=== PATIENT | female | born 1980 | race African-American/Black ===

== ENCOUNTER 2016-06-10 09:59 | Emergency (ER) | payer BC ==
[2016-06-10] MEDS ORDERED: NS 1,000 ML IV ONE ×2 (10:40)
[2016-06-10 10:50] LABS: % IMMATURE GRANULYOCYTES 0.4 % (0.0-1.1); ABSOLUTE IMMATURE GRANULOCYTES 0.04 10^3/uL (0.00-0.10); ADD DIFF? NO; ADD MORPH? NO; ADD SCAN? NO; ATYPICAL LYMPHOCYTE FLAG 10 (0-99); FRAGMENT RBC FLAG 0 (0-99); HEMATOCRIT 44.9 % (38.0-47.0); HEMOGLOBIN 14.8 g/dL (12.6-16.3); LEFT SHIFT FLG 40 (0-99); LIPEMIA HEMOLYSIS FLAG 80 (0-99); MEAN CELL HEMOGLOBIN 27.3 pg (27.9-34.1); MEAN CELL VOLUME 82.8 fL (81.5-99.8); PLATELET CLUMPS FLAG 0 (0-99); PLATELET COUNT 289 10^3/uL (150-400); RED BLOOD CELL COUNT 5.42 10^6/uL (4.18-5.33); RED CELL DISTRIBUTION WIDTH 13.2 % (11.5-15.2)
[2016-06-10 11:08] LABS: ALANINE AMINOTRANSFERASE 28 IU/L (9-52); ALBUMIN 4.7 g/dL (3.5-5.0); ALKALINE PHOSPHATASE 90 IU/L (38-126); ANION GAP 13 mEq/L (8-16); ASPARTATE AMINOTRANSFERASE 34 IU/L (14-46); BILIRUBIN-CONJUGATED 0.5 mg/dL (0.0-0.5); BILIRUBIN-UNCONJUGATED 0.5 mg/dL (0.0-1.1); CARBON DIOXIDE 21 mEq/l (22-31); CHLORIDE 108 mEq/L (97-110); CREATININE 0.9 mg/dL (0.6-1.0); GLOMERULAR FILTRATION RATE > 60; GLUCOSE 92 mg/dL (70-100); SODIUM 142 mEq/L (134-144); TOTAL PROTEIN 8.3 g/dL (6.3-8.2)
[2016-06-10 11:09] LABS: BHCG-QUALITATIVE NEGATIVE; MONO TEST NEGATIVE (NEGATIVE)
--- NOTE | 2016-06-10 11:12 | EDPHY ---
H & P Stated Complaint: herpes outbreak with lymphedema/[place] chills/diarrhea Time Seen by Provider: 06/10/16 10:26 HPI/ROS: CHIEF COMPLAINT: herpes genitalis HISTORY OF PRESENT ILLNESS: 36-year-old female prior history of herpes genitalis complaining of 4 days of herpes genitalis outbreak. She also notes a bifrontal non thunderclap headache present for the past 3 days, development of inguinal adenopathy and diarrhea in the past 1 day. Denies: Abdominal pain, nausea, vomiting, melena, hematochezia, international travel, untreated water sources, back or flank pain, urinary abnormality, nuchal rigidity, gait instability, slurred speech, visual disturbance. PRIMARY CARE PROVIDER: none REVIEW OF SYSTEMS: A ten point review of systems was performed and is negative with the exception of the items mentioned in the HPI PAST MEDICAL & SURGICAL HISTORY: Prior herpes genitalis SOCIAL HISTORY: nonsmoker PHYSICAL EXAM (Prior to examination, patient consented to physical exam, hands were washed and my usual and customary physical exam procedures followed) 1) GENERAL: Well-developed, well-nourished, alert and oriented. Appears nontoxic answering questions appropriately . 2) HEAD: Normocephalic, atraumatic 3) HEENT: Pupils equal, round, reactive to light bilaterally. Sclera anicteric. Nasopharynx, oropharynx, clear, no lesions. Moist mucous membranes. Ears bilaterally with normal tympanic membranes. 4) NECK: Full range of motion, no meningeal signs. 5) LUNGS: Clear auscultation bilaterally, no wheezes, no rhonchi, no retractions. 6) HEART: Regular rate and rhythm, no murmur, no heave, no gallop. 7) ABDOMEN: No guarding, no rebound, no focal tenderness, negative McBurney's, negative Cruz's, negative Rovsing's, negative peritoneal sign, I am unable to elicit any abdominal pain 8) MUSCULOSKELETAL: Moving all extremities, no focal areas of tenderness, no obvious trauma. No peripheral edema or discoloration. 9) BACK: No CVA tenderness, no midline vertebral tenderness, no fluctuance, no step-off, no obvious trauma, no visual or palpable abnormality. 10) SKIN: No rash, no petechiae. 11) Psychiatric: Patient is oriented X 3, there is no agitation. 12) NEURO: Awake, alert, and oriented to person, place and time. Answers questions appropriately. There were no obvious focal neurologic abnormalities. No cerebellar dysfunction. Normal steady gait. Upper and lower extremities bilaterally with strength 5 / 5, reflexes 2+. 13) ( performed with nurse Gwendolyn at bedside) multiple vesicular lesions on her labia majora and minora. Bilateral inguinal adenopathy noted DIFFERENTIAL DIAGNOSIS: in no particular order including but not limited to herpes genitalis, acute appendicitis, ectopic - Personal History LMP (Females 10-55): 1-7 Days Ago Current Tetanus/Diphtheria Vaccine: Yes - Medical/Surgical History Hx Asthma: No Hx Chronic Respiratory Disease: No Hx Diabetes: No Hx Cardiac Disease: No Hx Renal Disease: No Hx Cirrhosis: No Hx Alcoholism: No Hx HIV/AIDS: No Hx Splenectomy or Spleen Trauma: No Other PMH: denies - Social History Smoking Status: Never smoked Constitutional: Initial Vital Signs Temperature (C) 37.2 C 06/10/16 10:12 Heart Rate 100 06/10/16 10:12 Respiratory Rate 20 06/10/16 10:12 Blood Pressure 144/93 H 06/10/16 10:12 O2 Sat (%) 100 06/10/16 10:12 O2 Delivery Mode Room Air Allergies/Adverse Reactions: Penicillins Allergy (Verified 06/10/16 10:12) Home Medications: Medication Instructions Recorded LYSINE 06/10/16 valACYclovir [Valtrex (*)] 500 mg PO BID 3 Days 06/10/16 Medical Decision Making ED Course/Re-evaluation: Patient has been re-evaluated by myself with serial examinations. Most recent exam at 12:35 p.m. at which point she is sleeping and appears comfortable. Easily woken. Regarding her non thunderclap headache with no neurologic deficits, I think that intracranial hemorrhage, malignancy, venous thrombus, herpes meningitis, encephalitis, less than likely in this patient at this time. I do not think that the benefits of CT imaging and/or LP outweigh the risks. Discussed her physical exam findings consistent with herpes genitalis. Symptoms have been occurring for 4 days. Informed her that ideally antivirals would have been started sooner but I do think that a course of antivirals is currently indicated as I think the benefits outweigh the risks. She is started on Valtrex. She also notes new onset of diarrhea without nausea, vomiting, abdominal pain. Doubt acute surgical abdominal pathology. Doubt acute appendicitis, doubt ectopic . She has been unable to provide a stool sample in the emergency department. I do not think that imaging studies indicated currently. She has not have primary care provider. Given the name of on-call primary care provider for follow-up and usual customary strict return precautions instructions - Data Points Laboratory Results: Laboratory Results 06/10/16 10:45 06/10/16 10:45 06/10/16 06/10/16 06/10/16 10:45 10:45 10:45 WBC 10.81 10^3/uL H 10^3/uL (3.80-9.50) RBC 5.42 10^6/uL H 10^6/uL (4.18-5.33) Hgb 14.8 g/dL g/dL (12.6-16.3) Hct 44.9 % % (38.0-47.0) MCV 82.8 fL fL (81.5-99.8) MCH 27.3 pg L pg (27.9-34.1) MCHC 33.0 g/dL g/dL (32.4-36.7) RDW 13.2 % % (11.5-15.2) Plt Count 289 10^3/uL 10^3/uL (150-400) MPV 10.0 fL fL (8.7-11.7) Neut % (Auto) 71.0 % % (39.3-74.2) Lymph % (Auto) 17.9 % % (15.0-45.0) Towner % (Auto) 7.2 % % (4.5-13.0) Eos % (Auto) 3.1 % % (0.6-7.6) Baso % (Auto) 0.4 % % (0.3-1.7) Nucleat RBC Rel Count 0.0 % % (0.0-0.2) Absolute Neuts (auto) 7.67 10^3/uL H 10^3/uL (1.70-6.50) Absolute Lymphs (auto) 1.94 10^3/uL 10^3/uL (1.00-3.00) Absolute Monos (auto) 0.78 10^3/uL 10^3/uL (0.30-0.80) Absolute Eos (auto) 0.34 10^3/uL 10^3/uL (0.03-0.40) Absolute Basos (auto) 0.04 10^3/uL 10^3/uL (0.02-0.10) Absolute Nucleated RBC 0.00 10^3/uL 10^3/uL (0-0.01) Immature Gran % 0.4 % % (0.0-1.1) Immature Gran # 0.04 10^3/uL 10^3/uL (0.00-0.10) Sodium 142 mEq/L mEq/L (134-144) Potassium 5.0 mEq/L mEq/L (3.5-5.2) Chloride 108 mEq/L mEq/L (97-110) Carbon Dioxide 21 mEq/l L mEq/l (22-31) Anion Gap 13 mEq/L mEq/L (8-16) BUN 11 mg/dL mg/dL (7-23) Creatinine 0.9 mg/dL mg/dL (0.6-1.0) Estimated GFR > 60 Glucose 92 mg/dL mg/dL (70-100) Calcium 10.0 mg/dL mg/dL (8.5-10.4) Total Bilirubin 1.0 mg/dL mg/dL (0.1-1.4) Conjugated Bilirubin 0.5 mg/dL mg/dL (0.0-0.5) Unconjugated Bilirubin 0.5 mg/dL mg/dL (0.0-1.1) AST 34 IU/L IU/L (14-46) ALT 28 IU/L IU/L (9-52) Alkaline Phosphatase 90 IU/L IU/L (38-126) Total Protein 8.3 g/dL H g/dL (6.3-8.2) Albumin 4.7 g/dL g/dL (3.5-5.0) Lipase 86.0 IU/L IU/L (23-300) Beta HCG, Qual NEGATIVE Monoscreen NEGATIVE (NEGATIVE) Medications Given: Discontinued Medications Sodium Chloride (Ns) 1,000 mls @ 0 mls/hr IV ONCE ONE PRN Reason: Wide Open Stop: 06/10/16 10:41 Last Admin: 06/10/16 10:56 Dose: 1,000 mls Sodium Chloride (Ns) 1,000 mls @ 0 mls/hr IV ONCE ONE PRN Reason: Wide Open Stop: 06/10/16 10:41 Last Admin: 06/10/16 10:56 Dose: 1,000 mls Departure - Departure Disposition: Home, Routine, Self-Care Clinical Impression: Herpes genitalis Qualifiers: Herpes simplex infection site: vulvovaginitis Qualified Code(s): A60.04 - Herpesviral vulvovaginitis Condition: Good Instructions: Genital Herpes Simplex (ED) Additional Instructions: Return to the ER if you develop new or worsening symptoms Referrals: KEN GUTIÉRREZ [Medical Doctor] - 2-3 days, call for appt. Stand Alone Forms: Work Excuse Prescriptions: valACYclovir [Valtrex (*)] 500 mg PO BID 3 Days
[2016-06-10 12:15] VITALS: BP 133/81; PULSE 69; RESP 18; TEMP 99.5; O2SAT 96
== END 2016-06-10 13:05 | disposition home or self-care (01) ==
DX: A60.04 Herpesviral vulvovaginitis (principal)